=== PATIENT | female | born 1955 | race Caucasian/White ===

== ENCOUNTER 2019-08-10 13:27 | Emergency (ER) | payer MEDICAID ==
[~2019-08-10] VITALS: Ht 180.3 cm; Wt 84.1 kg
[~2019-08-10 13:27] MED LIST: MAGN296S68 CORPAK
[2019-08-10 14:24] LABS: BASOPHILS # (AUTO) 0.1 X10'3 (0-0.2); BASOPHILS % (AUTO) 0.5 % (0-1); EOSINOPHILS % (AUTO) 0.3 % (0-6); HEMATOCRIT 45.6 % (35.0-45.0); HEMOGLOBIN 15.7 g/dl (12.0-16.0); LYMPHOCYTES # (AUTO) 1.4 X10'3 (1.1-4.8); LYMPHOCYTES % (AUTO) 11.3 % (21-51); MEAN CORPUSCULAR HEMOGLOBIN 28.2 PG (27.0-31.0); MEAN CORPUSCULAR HGB CONC 34.4 g/dL (33.0-36.5); MEAN CORPUSCULAR VOLUME 82.1 FL (78-98); MEAN PLATELET VOLUME 8.3 FL (7.4-10.4); MONOCYTES # (AUTO) 1.3 X10'3 (0-0.9); MONOCYTES % (AUTO) 10.4 % (2-12); NEUTROPHILS # (AUTO) 9.4 X10'3 (1.8-7.7); NEUTROPHILS % (AUTO) 77.5 % (42-75); PLATELET COUNT 217 X10'3 (140-440); RED BLOOD COUNT 5.55 X10'6 (4.20-5.60); RED CELL DISTRIBUTION WIDTH 14.3 % (11.5-14.5); WHITE BLOOD COUNT 12.1 X10'3 (4.5-11.0)
[2019-08-10 14:41] LABS: ALANINE AMINOTRANSFERASE 38 U/L (12-78); ALBUMIN 3.7 G/DL (3.4-5.0); ALBUMIN/GLOBULIN RATIO 0.9 (1.1-1.5); ALKALINE PHOSPHATASE 64 IU/L (46-116); ANION GAP 7 (8-16); ASPARTATE AMINO TRANSFERASE 36 U/L (10-37); BILIRUBIN,TOTAL 0.8 MG/DL (0.1-1.0); BLOOD UREA NITROGEN 13 MG/DL (7-18); BUN/CREATININE RATIO 13.7 (6.6-38.0); CALCIUM 9.6 MG/DL (8.5-10.1); CHLORIDE 104 MMOL/L (99-107); CREATININE 0.95 MG/DL (0.40-0.90); GLUCOSE 136 MG/DL (70-104); POTASSIUM 3.4 MMOL/L (3.5-5.1); SODIUM 140 MMOL/L (135-145); TOTAL CARBON DIOXIDE 28.7 MMOL/L (24-32); eGFR 59 ML/MIN
[2019-08-10] MEDS ORDERED: dexamethasone sod phosphate 10mg/ml inj PO STA (15:32)
[2019-08-10] MEDS ORDERED: azithromycin 250mg tablet PO ONE (15:35)
[2019-08-10] MEDS ORDERED: BENZ-16 PO (15:37)
[2019-08-10] MEDS ORDERED: AZIT-63 PO (15:38)
[2019-08-10] MEDS ORDERED: ipratropium/albuterol 3ml nebule NEB ONE (16:20)
[2019-08-10] MEDS ORDERED: CefTRIAXone 1000mg IM Kit (w/lidocaine diluent) IM ONE (16:50)
[2019-08-10 17:23] VITALS: BP 118/68
== END 2019-08-10 17:21 | disposition home or self-care (01) ==
LOC: ER 13:28
DX: J18.1 Lobar pneumonia, unspecified organism (principal); F17.210 Nicotine dependence, cigarettes, uncomplicated; Z72.89 Other problems related to lifestyle; Z79.2 Long term (current) use of antibiotics; Z79.899 Other long term (current) drug therapy
CPT/HCPCS: 36415; 71046; 80053; 83605; 85025; 87040; 94640; 96372; 99284; J0696; J1100; 94760